=== PATIENT | male | born 1970 | race Caucasian/White ===

== ENCOUNTER 2020-05-03 19:47 | Emergency (ER) | payer OTHER ==
[~2020-05-03] VITALS: Ht 177.8 cm; Wt 81.8 kg
[~2020-05-03 19:47] MED LIST: ASPI81TA39 PO; CYCL10 PO; GABA-1181 PO; GLIM4 PO; IBUP-2784 PO; METF-911 PO; MONT-35 PO; OMEP10 PO; SIMV-261 PO; ZOLP-280 PO
[2020-05-03] MEDS ORDERED: INSU3INS3 INJ (20:03)
[2020-05-03 22:35] VITALS: BP 119/74
[2020-05-03] MEDS ORDERED: KETOROLAC TROMETHAMINE 30 MG/ML VIAL IM ONE (22:45)
== END 2020-05-03 23:24 | disposition home or self-care (01) ==
LOC: EMS 19:49
DX: M54.5 Low back pain (principal); E11.9 Type 2 diabetes mellitus without complications; Z79.84 Long term (current) use of oral hypoglycemic drugs
CPT/HCPCS: 82962; 96372; 99283; J1885